=== PATIENT | female | born 1950 | race Caucasian/White ===

== ENCOUNTER 2024-09-30 12:37 | Outpatient (OUT) | payer MEDICARE, SELFPAY ==
--- NOTE | 2024-09-30 13:38 | CT_ITS ---
The [address] [address] Patient Name: SHONA LI MRN: [id number] date: 1950 Sex: F Assigned Patient Location: CT Current Patient Location: CT Accession/Order Number: [id number] Exam Date: 09/30/2024 14:30 Report Date: 09/30/2024 14:40 At the request of: SCARLETT DIXON DO Procedure: CT chest wo con CT Chest without contrast TECHNIQUE: Axial imaging with 2-D reconstruction. The CT exam was performed using one or more the following dose reduction techniques: Automated exposure control, adjustment of the MA and/or Kv according to patient size, or use of the iterative reconstruction technique. History: Left pleural effusion. Postthoracentesis. COMPARISON: None THYROID: Unremarkable TRACHEA AND BRONCHI: Patent ESOPHAGUS: Moderate hiatal hernia. HEART: Within normal limits PERICARDIAL EFFUSION: None CORONARY ARTERY CALCIFICATION: None MEDIASTINUM: Small mediastinal lymph nodes PULMONARY RADHA: Mildly prominent left hilar lymph nodes. Small right hilar lymph nodes. THORACIC AORTA Unremarkable LUNG NODULE None LUNGS: Lungs are clear PLEURAL EFFUSION: A tiny left pleural effusion with concern for loculation. Nodular pleural thickening of the medial portion of the left lung base. This abuts the left heart border and also extends throughout the subpleural region of the left lung. Greatest thickening identified medial portion of the left lung base measuring up to 2.7 cm. Left epicardial nodularity present. Enlarged lymph nodes may be present. PNEUMOTHORAX: No pneumothorax seen. CHEST WALL: No abnormality AXILLA:Left axillary lymph node mildly enlarged with short axis dimension up to 11 mm. Smaller bilateral axillary lymph nodes. BONY STRUCTURES Intact UPPER ABDOMEN: 3.2 cm anterior hepatic ill-defined hypodense lesion. Concern for malignancy/metastasis. Unremarkable adrenal glands. CT/CT chest wo con IMPRESSION: Extensive nodular pleural thickening throughout the left lung base greatest in the medial basilar region with thickness approaching 2.7 cm. Consider assessment for pleural metastasis. Nodular soft tissue masses in the left epicardial region. Concerning for metastatic adenopathy. Mildly prominent left axillary lymph node. Malignancy not excluded. Ill-defined 3.2 cm intrahepatic lesion. Concern for malignancy/metastasis. Consider further assessment with PET CT imaging and/or tissue sampling. Impression dictated by: Sergio Ken M.D.09/30/2024 2:40 PM Dictation Location: [place] [address] Electronically authenticated by: [id number] Y Date: 09/30/2024 14:40
--- NOTE | 2024-09-30 14:48 | W.PM.PROCNOT ---
Date of procedure: 09/30/24 Procedure: Procedure: Diagnostic & therapeutic ultrasound-guided left-sided thoracentesis Pre/Post-Diagnosis: Large left pleural effusion Surgeon: Gerardo Higuera DO Anesthesia: Lidocaine 1% 10mL Estimated Blood Loss: <1mL Specimens: Pleural fluid sent of analysis Complications: None Consent: Informed consent was obtained after risks, benefits, and alternatives were discussed with the patient. Time out was initiated to confirm the correct patient, site, and procedure with all present voicing in the affirmative. Procedure: The patient was placed in the seated position in the hospital bed. Ultrasound was utilized to identify the hemidiaphragm and pleural fluid on the left. Tongue sign was present on ultrasound, indicating a large pleural effusion. An appropriate drainage site was marked via pen, based on anatomical landmarks and the ultrasound findings. Chloraprep was used to cleanse the lower left hemithorax. Sterile drapes were applied. Lidocaine 1% 10mL was injected, first as superficial skin wheal, and then using aspiration technique, advanced over the superior aspect of the lower rib subcutaneously at the periosteum and then parietal pleura. Easy return of montse colored pleural fluid was aspirated. Next, a small incision was made to the anesthetized area with the blade provided in the prepackaged thoracentesis kit. Hemostasis was achieved. A vusfslrl-udja-jakftb apparatus was advanced as a unit over the superior aspect of the lower rib into the pleural space with great care to prevent further progression of the needle into the pleural cavity. The needle was then retracted completely and discarded. A vacuum collection system was attached to the catheter and pleural fluid was collected for analysis. A total of 1000mL of pleural fluid was removed. The procedure was terminated due to chest pain. The catheter was then removed during an expiratory breath-hold maneuver. The patient felt slightly nauseous and lightheaded. She was laid down in the bed. Transient hypotension was present, but it rapidly improved and no intervention was required. The patient was then transported to CT as a chest CT was ordered to be immediately done after the thoracentesis (therefore, negating the need for a CXR). I personally accompanied the patient down to CT and observed the imaging. No pneumothorax was present. There was some remnant fluid present. There appears to be a LLL mass and pleural thickening. I discussed the preliminary chest CT findings with the patient and . By this time, the patient felt improved with the exception of some mild lingering left posterior chest pain. She was discharged home in satisfactory condition.
== END 2024-09-30 12:38 | disposition home or self-care (01) ==
LOC: CT 12:41
PROVIDERS: PCP Family Medicine; Visit Provider Internal Medicine
DX: J90 Pleural effusion, not elsewhere classified (principal); R91.8 Other nonspecific abnormal finding of lung field; K76.9 Liver disease, unspecified
CPT/HCPCS: 36415; 71250; 82150; 82945; 83615; 83986; 84157; 84478; 87070; 87205; 89051

== ENCOUNTER 2024-09-30 12:43 | Outpatient (RCR) | payer MEDICARE, SELFPAY ==
[2024-09-30 12:54] VITALS: BP 119/68; PULSE 82; TEMP 36.7; O2SAT 97
[2024-09-30 13:25] VITALS: BP 84/50; PULSE 72; O2SAT 95
[2024-09-30 13:40] VITALS: BP 97/61; PULSE 72; O2SAT 95
[2024-09-30 15:34] LABS: BOX Test Reference Lab CLEVELAND CLINIC
[2024-10-01 14:08] LABS: Amylase, Body Fluid 81 U/L (.); Clarity, Serous Hazy (Clear); Color, Serous Yellow (.); Eosinophils, Serous 0 % (Not Estab.); Glucose, Body Fluid 94 mg/dL (.); LD, Body Fluid 348 IU/L (.); Lymphocytes, Serous 47 % (Not Estab.); Macrophages, Serous 25 % (Not Estab.); Neut, Serous 28 % (0-24); Nucleated Cells, Serous 527 /mm3 (0-499); Protein, Body Fluid 4.4 g/dL (.); RBC, Serous 4000 /uL (Not Estab.); Triglycerides, Fluid 19 mg/dL (Not Estab.)
== END 2024-10-13 23:59 | disposition home or self-care (01) ==
LOC: INF 12:43
PROVIDERS: PCP Family Medicine; Visit Provider Internal Medicine
DX: J90 Pleural effusion, not elsewhere classified (principal); R91.8 Other nonspecific abnormal finding of lung field; K76.9 Liver disease, unspecified
CPT/HCPCS: 36415; 71250; 82150; 82945; 83615; 83986; 84157; 84478; 87070; 87205; 88112; 88305; 88341; 88342; 89050; 89051